=== PATIENT | female | born 1985 | race Caucasian/White ===

== ENCOUNTER 2024-05-26 12:31 | Outpatient (CLI) | payer OTHER ==
[~2024-05-26] VITALS: Ht 165.1 cm; Wt 90.7 kg
[2024-05-26] MEDS: albuterol 2.5 MG/3 ML nebule NEB ONE (13:13)
[2024-05-26 13:15] VITALS: PULSE 76; RESP 18; O2SAT 98
[2024-05-26 13:27] VITALS: PULSE 74; RESP 18
== END 2024-05-26 23:59 | disposition home or self-care (01) ==
LOC: RT 12:31
PROVIDERS: ATTEND Chiropractor
DX: J45.909 Unspecified asthma, uncomplicated (principal)
CPT/HCPCS: 94060; 94760; L0172